=== PATIENT | female | born 1990 | race Caucasian/White ===

== ENCOUNTER 2018-10-11 17:38 | Emergency (ER) | payer SELFPAY ==
[~2018-10-11] VITALS: Ht 162.6 cm; Wt 60.0 kg
[2018-10-11 18:38] VITALS: BP 128/88
== END 2018-10-11 18:39 | disposition home or self-care (01) ==
LOC: ER 17:38
DX: Z76.0 Encounter for issue of repeat prescription (principal); F31.9 Bipolar disorder, unspecified
CPT/HCPCS: 99281